=== PATIENT | female | born 1985 | race Caucasian/White ===

== ENCOUNTER 2017-01-31 08:27 | Emergency (ER) | payer MEDICAID ==
--- NOTE | 2017-01-31 08:32 | EDPHY ---
H & P Time Seen by Provider: 01/31/17 08:28 HPI/ROS: CHIEF COMPLAINT: Fever, sore throat, myalgias, vomiting HISTORY OF PRESENT ILLNESS: The patient presents to the ED with a 1 day history of fever, sore throat, myalgias and vomiting. The patient reportedly has been exposed to someone with strep pharyngitis. She also believes that she may have influenza. Patient denies significant cough. She denies significant past medical history. The patient denies any acute abdominal pain, diarrhea or recent medication changes. The patient states her symptoms are mild to moderate in nature. She has no complaints of acute headache or focal neck stiffness. REVIEW OF SYSTEMS: A comprehensive 10 point review of systems is otherwise negative aside from elements mentioned in the history of present illness. Source: Patient Exam Limitations: No limitations - Personal History Tetanus Vaccine Date: 2007 - Medical/Surgical History Hx Asthma: No Hx Chronic Respiratory Disease: No Hx Diabetes: No Hx Cardiac Disease: No Hx Renal Disease: No Hx Cirrhosis: No Hx Alcoholism: No Hx HIV/AIDS: No Hx Splenectomy or Spleen Trauma: No Other PMH: Olga 2015, appy, tonsillectomy,pneumonia,hysterectomy, anxiety, hypothyroid - Social History Smoking Status: Current some day smoker - Physical Exam Exam: General Appearance: Alert, no distress Eyes: Pupils equal and round no pallor or injection ENT, Mouth: Pharyngeal erythema noted Respiratory: There are no retractions, lungs are clear to auscultation Cardiovascular: Regular rate and rhythm Gastrointestinal: Abdomen is soft and nontender, no masses, bowel sounds normal Neurological: A&O, normal motor function, normal sensory exam, normal cranial nerves Skin: Warm and dry, no rashes Musculoskeletal: Neck is supple nontender Extremities: symmetrical, full range of motion Constitutional: Initial Vital Signs Temperature (C) 36.9 C 01/31/17 08:36 Heart Rate 76 01/31/17 08:36 Respiratory Rate 18 01/31/17 08:36 Blood Pressure 123/81 H 01/31/17 08:36 O2 Sat (%) 96 01/31/17 08:36 O2 Delivery Mode Room Air Allergies/Adverse Reactions: adhesive Allergy (Verified 01/31/17 08:35) Rash egg [eggs] Allergy (Verified 01/31/17 08:35) Anaphylaxis Penicillins Allergy (Verified 01/31/17 08:35) Home Medications: Medication Instructions Recorded Synthroid 10/04/15 Sertraline HCl 01/31/17 Medical Decision Making ED Course/Re-evaluation: The patient's rapid strep test is negative. Pending at this time is a flu PCR test. The patient will contact the ED later this afternoon to check those results. The patient is advised to use Tylenol and ibuprofen as needed for pain. She should return to the ED for markedly worsening symptoms or other concerns. - Data Points Laboratory Results: 01/31/17 01/31/17 01/31/17 Unknown 08:50 08:50 Influenza A & B (PCR) Pending Group A Strep Screen NEGATIVE (NEGATIVE) Group A Strep DNA Pending Departure - Departure Disposition: Home, Routine, Self-Care Clinical Impression: Febrile illness, acute Condition: Good Instructions: Pharyngitis (ED) Additional Instructions: 1. Your rapid strep test is negative. We will contact you if your strep DNA test is positive. 2. Please contact the emergency department this afternoon to check the results of your flu test. 3. Take Ibuprofen or Motrin 600 mg by mouth three times a day. 4. Zofran as needed for nausea Referrals: LEA SÁNCHEZ,. [Primary Care Provider] - As per Instructions
[2017-01-31 08:38] VITALS: BP 123/81; PULSE 76; RESP 18; TEMP 98.4; O2SAT 96
[2017-01-31] MEDS ORDERED: IBUPROFEN 200 MG TAB PO ONE (09:09)
== END 2017-01-31 09:24 | disposition home or self-care (01) ==
LOC: CED 08:27
DX: R50.9 Fever, unspecified (principal); F17.200 Nicotine dependence, unspecified, uncomplicated
CPT/HCPCS: 87880-PO

== ENCOUNTER 2018-04-04 03:47 | Emergency (ER) | payer MEDICAID ==
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
[2018-04-04] MEDS ORDERED: ONDANSETRON DISINTEGRATING 4 MG TAB PO ONE (04:42)
[2018-04-04] MEDS ORDERED: AZITHROMYCIN 250 MG TAB PO ONE (04:42)
[2018-04-04 07:48] VITALS: BP 115/74
== END 2018-04-04 06:55 | disposition home or self-care (01) ==
LOC: EDUNIT# → EEVIPCON 03:47
DX: T74.21XA Adult sexual abuse, confirmed, initial encounter (principal)

== ENCOUNTER 2018-06-21 09:56 | Emergency (ER) | payer MEDICAID ==
[2018-06-21] MEDS ORDERED: IBUPROFEN 600 MG TAB PO ONE ×2 (10:30→10:34)
[2018-06-21] MEDS ORDERED: IPRATROPIUM/ALBUTEROL 3 ML DEYVIAL ONE (10:31)
[2018-06-21] MEDS ORDERED: IPRATROPIUM/ALBUTEROL 3 ML DEYVIAL IH ONE (10:34)
--- NOTE | 2018-06-21 11:15 | EDPHY ---
H & P Time Seen by Provider: 06/21/18 10:00 HPI/ROS: CHIEF COMPLAINT: Cough, sore throat, fever, body aches HISTORY OF PRESENT ILLNESS: Patient states she has been sick for about 9 days. She describes cough, fever, body aches, sore throat and shortness of breath. She states she has had some wheezes. She also describes occasional right ear pain. She thought it was just a cold but today she has noticed more chest pain with cough. She states she has had fever off and on with the last fever yesterday which was not measured. Also body aches and chills. She denies nausea or vomiting. She has had no diarrhea or dysuria. She has no chest pain at rest. She has been using DayQuil and Medi rinse. Contents of 10 point review of systems otherwise negative except for what is mentioned in HPI. General Appearance: Alert, no distress. Eyes: Pupils equal and round no pallor or injection. ENT, Mouth: Mucous membranes moist. TMs clear bilaterally, no lymphadenopathy. Erythematous posterior oropharynx no exudate. Respiratory: There are no retractions, lungs are clear other than occasional wheeze with expiration. Cardiovascular: Regular rate and rhythm. Gastrointestinal: Abdomen is soft and nontender, no masses, bowel sounds normal. Neurological: Awake and alert, cranial nerves intact, no neuro deficits. Skin: Warm and dry, no rashes. Musculoskeletal: Neck is supple nontender. Extremities are symmetrical, full range of motion, no edema. Psychiatric: Patient is oriented X 3, there is no agitation. Medical/surgical history: Hypothyroid, anxiety, history pneumonia. Surgeries include cholecystectomy, appendectomy, tonsillectomy, hysterectomy. Social history: Uses tobacco, denies drugs. Smoking Status: Light smoker Constitutional: Initial Vital Signs Temperature (C) 37.4 C 06/21/18 10:07 Heart Rate 75 06/21/18 10:07 Respiratory Rate 20 06/21/18 10:07 Blood Pressure 128/67 H 06/21/18 10:07 O2 Sat (%) 96 06/21/18 10:07 O2 Delivery Mode Room Air Allergies/Adverse Reactions: adhesive Allergy (Verified 01/31/17 08:35) Rash egg [eggs] Allergy (Verified 01/31/17 08:35) Anaphylaxis Penicillins Allergy (Verified 01/31/17 08:35) Home Medications: Medication Instructions Recorded Synthroid 10/04/15 Sertraline HCl 01/31/17 Albuterol Sulfate [Albuterol 8.5 gm IH Q3-4PRN PRN 14 Days #1 06/21/18 Sulfate Hfa] [email or web address] Omeprazole 06/21/18 Medical Decision Making Differential Diagnosis: Differential diagnosis includes influenza, bronchitis, other upper respiratory infection, pneumonia. After evaluation patient with flu-like illness although influenza testing is negative. Responded well to nebulizer treatment for bronchitis symptoms and will be discharged with prescription for albuterol. Also recommended ibuprofen and other [id number] remedies. No signs of hypoxia, tachycardia, or other indications of serious bacterial illness. Discussed follow-up and return precautions. Stable for discharge. - Data Points Medications Given: Discontinued Medications Albuterol/Ipratropium (Duoneb) 3 ml IH EDNOW ONE Stop: 06/21/18 10:35 Last Admin: 06/21/18 10:35 Dose: 3 ml Ibuprofen (Motrin) 600 mg PO EDNOW ONE Stop: 06/21/18 10:35 Last Admin: 06/21/18 10:38 Dose: 600 mg Point of Care Test Results: Influenza PCR Flu Nasal Swab Collection Date 06/21/18 Flu Nasal Swab Collection Time 10:16 Influenza A Result Not Detected Influenza B Result Not Detected Departure - Departure Disposition: Home, Routine, Self-Care Clinical Impression: Influenza-like illness Acute bronchitis Qualifiers: Bronchitis organism: unspecified organism Qualified Code(s): J20.9 - Acute bronchitis, unspecified Condition: Fair Instructions: Acute Bronchitis (ED) Additional Instructions: Use the albuterol inhaler as needed. Stay well hydrated. Also use ibuprofen, 600 mg, 3 to 4 times a day as needed for body aches and sore throat. Follow up with her primary care physician in 3-5 days if not improving. Return to this emergency department for worsening symptoms such as significant shortness of breath, change in the chest pain or other concerning issues. Referrals: NONE *PRIMARY CARE P,. [Primary Care Provider] - As per Instructions Prescriptions: Albuterol Sulfate [Albuterol Sulfate Hfa] 8.5 gm IH Q3-4PRN PRN 14 Days #1 [email or web address] PRN Reason: Wheezing
[2018-06-21 11:26] VITALS: BP 120/78
== END 2018-06-21 11:28 | disposition home or self-care (01) ==
LOC: CED 09:56
DX: J20.9 Acute bronchitis, unspecified (principal)
CPT/HCPCS: 99283-ER